=== PATIENT | female | born 1950 | race Caucasian/White ===

== ENCOUNTER 2017-05-30 19:55 | Emergency (ER) | payer OTHER | END 2017-05-30 21:04 | disposition home or self-care (01) | LOC: D.ER 19:55 | DX: S42.291A Other displaced fracture of upper end of right humerus, initial encounter for closed fracture (principal); W19.XXXA Unspecified fall, initial encounter; Y93.89 Activity, other specified; Y92.89 Other specified places as the place of occurrence of the external cause; E11.9 Type 2 diabetes mellitus without complications ==

== ENCOUNTER → 2019-03-23 12:48 | Outpatient (CLI) | payer MEDICARE, BC ==
[~2019-03-23 12:48] MED LIST: ALBUTEROL SULF8.5 GM INH; GLIPIZIDE10 MG PO; GLUCOPHAGE500 MG PO; LASIX20 MG PO; LISINOPRIL10 MG PO; TENORMIN25 MG PO
[2019-03-25 09:38] VITALS: BMI 32.1
== END | disposition home or self-care (01) ==
LOC: D.LAB 12:48
PROVIDERS: ATTEND Nurse Practitioner
DX: R09.02 Hypoxemia (principal); R60.0 Localized edema

== ENCOUNTER 2019-03-24 18:11 | Inpatient (IN) | payer MEDICARE, BC ==
[~2019-03-24] VITALS: Ht 154.9 cm; Wt 80.9 kg
--- NOTE | ~2019-03-24 | CN ---
PATIENT NAME:AISHA NEIL MEDICAL RECORD: [id number] : 52 LOCATION:D. D.2120 ADMIT DATE: 03/24/19 ACCOUNT: [id number] CONSULTING PHYSICIAN: DEB VU MD REFERRING PHYSICIAN: MARTINEZ GRIMALDO DO DATE OF CONSULTATION: 03/25/2019 CONSULT REQUESTING PHYSICIAN: Dr. Martinez Grimaldo REASON FOR CONSULTATION: Bilateral pleural effusion and dyspnea. HISTORY OF PRESENT ILLNESS: Ms. Neil is a 69-year-old female, who is complaining of shortness of breath with mild exertion. She has orthopnea. She has a PND. She has worsening swelling of the lower extremity. The patient came into the ER. Chest x-ray showed bilateral pleural effusion and the proBNP was 7600. Her pO2 was 57. Now, the patient is feeling lot better and she is off of the oxygen. REVIEW OF THE SYSTEM: As in history of present illness. PAST MEDICAL HISTORY: 1. Type 2 diabetes mellitus with neuropathy. 2. Dyspnea. 3. Hypertension. 4. Arthritis. PAST SURGICAL HISTORY: She has a hysterectomy. ALLERGIES: SHE IS ALLERGIC TO CODEINE. MEDICATIONS: She is on Bumex drip. Her all other medications are reviewed. PERSONAL AND SOCIAL HISTORY: The patient is an ex-smoker. She is a nondrinker. FAMILY HISTORY: Noncontributory. PHYSICAL EXAMINATION: GENERAL: Now, the patient is lying comfortable, but she is not in acute distress. VITAL SIGNS: The blood pressure is 149/66, pulse is 82, respirations 19, temperature 98.2, and SpO2 is 95% on room air. HEENT: Conjunctivae are pink. Sclerae are not icteric. NECK: Supple, no JVD. There are bilateral crackles with decreased breath sounds. HEART: Rhythm regular, normal sound. There are grade II/ systolic murmur. ABDOMEN: Soft, bowel sounds present. No hepatosplenomegaly. RECTAL: Deferred. EXTREMITIES: No cyanosis, no clubbing. There is 3+ pedal edema. CENTRAL NERVOUS SYSTEM: The patient is awake and alert. There is no obvious cranial nerve abnormality. The gait was not tested. CHEST RADIOGRAPH: There are bilateral pleural effusions with atelectasis. LABORATORY DATA: CBC: WBC 7.9, hemoglobin 11.2, hematocrit 33.4, the platelet count is 268. Chemistry: Sodium 137, potassium is 4.3, BUN is 33, creatinine CONSULT REPORT [id number] AISHA NEIL 0.6. The proBNP is 7600. Albumin is 2.7. ABG on admission: The pH was 7.41, pCO2 was 35.7, the pO2 was 57, bicarbonate was 22.7. IMPRESSION: 1. Acute hypoxic respiratory failure, improved. 2. Dyspnea, which is multifactorial. 3. Bilateral pleural effusion. 4. Congestive heart failure, most likely chronic systolic dysfunction. 5. Atelectasis of the lower lobe secondary to pleural effusion. 6. Ex-smoker, suspect chronic obstructive pulmonary disease. RECOMMENDATIONS: 1. Continue Bumex. 2. Continue supplemental oxygen to keep the SpO2 above 92% if required. 3. Follow up labs and chest radiograph. 4. Incentive spirometry. 5. The patient will need PFTs and workup for COPD as outpatient. Dr. Grimaldo, thank you for involving me in the care of Ms. Neil. TRANSINT:[id number] Voice Confirmation ID: [id number] DOCUMENT ID: [id number] DEB VU MD CC: [id number] DICTATION DATE: 03/25/19 1543 GLAUCOMA SPECIALIST: 03/26/19 1306 ADM IN [facility] [address] [place] [address]
[2019-03-24] MEDS ORDERED: GLIPIZIDE10 MG PO (18:23)
[2019-03-24] MEDS ORDERED: GLUCOPHAGE500 MG PO (18:23)
[2019-03-24] MEDS ORDERED: TENORMIN25 MG PO (18:24)
[2019-03-24] MEDS ORDERED: LISINOPRIL10 MG PO (18:24)
[2019-03-24] MEDS ORDERED: LASIX20 MG PO (18:25)
[2019-03-24 19:56] LABS: BASOPHILS 0.2 % (0-2); EOSINOPHILS 1.4 % (0-7); HEMATOCRIT 37.3 % (36.0-48.0); HEMOGLOBIN 12.7 g/dL (12-16); IMMATURE GRANULOCYTES 0.1 % (0-5); LYMPHOCYTES 18.5 % (15-50); MCH 28.7 pg (26.0-34.0); MCV 84.2 fL (80.0-100.0); MEAN PLATELET VOLUME 9.3 fL (7.4-10.4); MONOCYTES 8.4 % (2-11); NEUTROPHILS 71.4 % (40-80); PLATELET COUNT 302 10x3/uL (130-400); RBC 4.43 10x6/uL (4.00-5.40); RDW 13.5 % (11.5-14.5); WBC 9.6 10x3/uL (4.8-10.8)
[2019-03-24] MEDS ORDERED: ALBUTEROL SULF8.5 GM INH (20:16)
[2019-03-24 20:17] LABS: ALBUMIN 2.7 g/dL (3.4-5.0); ALKALINE PHOSPHATASE 175 U/L (46-116); ALT (SGPT) 36 U/L (10-68); BILIRUBIN - TOTAL 0.55 mg/dL (0.2-1.3); CALC OSMOLALITY 279 mosm/kg (275-300); CALCIUM 8.8 mg/dL (8.5-10.1); CARBON DIOXIDE 28.8 mmol/L (21.0-32.0); CHLORIDE - SERUM 102 mmol/L (98-107); CREATININE - SERUM 0.9 mg/dL (0.6-1.3); GLUCOSE 77 mg/dL (74-106); POTASSIUM - SERUM 4.4 mmol/L (3.5-5.1); PROTEIN - SERUM 7.2 g/dL (6.4-8.2); SODIUM 137 mmol/L (136-145); UREA NITROGEN 31 mg/dL (7-18); eGFR NON AFRICAN AMERICAN 66 mL/min (90-120)
[2019-03-24 20:28] LABS: CKMB 1.4 U/L (0.0-3.6); CREATINE KINASE 57 UL (21-215); PRO BNP 7600 pg/mL (0-125); TROPONIN-I < 0.017 ng/mL (0.000-0.060)
--- NOTE | 2019-03-24 22:01 | NUR ---
REPORT RECIEVED FROM ER. PT COMING ON A BUMEX DRIP. ALERT AND ORIENTED.
--- NOTE | 2019-03-24 22:15 | NUR ---
ADMIT TO ROOM 2120 FROM ER. ACCOMPANIED BY SISTER. IV BUMEX DRIP AT 3.5ML/HR INFUSING TO RIGHT A/C. NONLABORED RESPIRATIONS ON ROOM AIR. SET ROOM UP WITH BSC AND WALKER TO BE USED WITH GETTING UP AND DOWN TO VOID. INSTRUCTED ON USE OF CALL LIGHT TO CALL FOR ASSISTANCE. PROVIDED SANDWICH TRAY.
[2019-03-25] VITALS (7 sets, daily range): BP systolic 124–149; BP diastolic 59–75; Ht 154.9 cm; Wt 80.9 kg
[2019-03-25 04:25] LABS: BASOPHILS 0.3 % (0-2); EOSINOPHILS 1.4 % (0-7); HEMATOCRIT 33.4 % (36.0-48.0); HEMOGLOBIN 11.2 g/dL (12-16); IMMATURE GRANULOCYTES 0.3 % (0-5); LYMPHOCYTES 16.6 % (15-50); MCH 28.4 pg (26.0-34.0); MCHC 33.5 g/dL (31.0-37.0); MCV 84.6 fL (80.0-100.0); MEAN PLATELET VOLUME 9.7 fL (7.4-10.4); NEUTROPHILS 72.4 % (40-80); PLATELET COUNT 268 10x3/uL (130-400); RBC 3.95 10x6/uL (4.00-5.40); RDW 13.4 % (11.5-14.5); WBC 7.9 10x3/uL (4.8-10.8)
--- NOTE | 2019-03-25 04:34 | NUR ---
PT RESTING IN BED WITH NO DISTRESS. RESPS EVEN/NONLABORED. BUMEX DRIP INFUSING. CALL LIGHT IN REACH. MONITOR AND CPOC.
[2019-03-25 04:47] LABS: CALC OSMOLALITY 281 mosm/kg (275-300); CALCIUM 9.1 mg/dL (8.5-10.1); CARBON DIOXIDE 26.3 mmol/L (21.0-32.0); CHLORIDE - SERUM 103 mmol/L (98-107); GLUCOSE 109 mg/dL (74-106); MAGNESIUM - SERUM 1.7 mg/dL (1.8-2.4); PHOSPHOROUS 4.8 mg/dL (2.5-4.9); POTASSIUM - SERUM 4.3 mmol/L (3.5-5.1); PRO BNP 6141 pg/mL (0-125); SODIUM 137 mmol/L (136-145); UREA NITROGEN 33 mg/dL (7-18)
[2019-03-25 04:48] LABS: CREATININE - SERUM 0.6 mg/dL (0.6-1.3); eGFR NON AFRICAN AMERICAN > 90 mL/min (90-120)
--- NOTE | 2019-03-25 07:10 | NUR ---
AM ROUNDS- PT IN BED, RESTING COMFORTABLY IN BED, EASILY AROUSES TO VOICE. PT A/O X4, RESP EVEN AND NONLABORED ON RA. RT AC INFUSING BUMEX AT 3.5CC/HR. MONITOR SHOWING SR WITH RATE OF 92. GENERALIZED/PITTING EDEMA NOTED TO BILAT LEGS. PT DENIES ANY NEEDS AT THIS TIME. CALL LIGHT IN REACH, NAD NOTED, WILL CONTINUE PLAN OF CARE.
--- NOTE | 2019-03-25 08:32 | NUR ---
AM MEDS GIVEN AT THIS TIME. PT IN BED, EATING BREAKFAST, DENIES ANY NEEDS AT THIS TIME. CALL LIGHT IN REACH, NAD NOTED, WILL CONTINUE TO MONITOR.
--- NOTE | 2019-03-25 11:07 | NUR ---
BLOOD SUGAR OF 196, 2UNITS OF HUMALOG GIVEN PER S/S. PT DENIES ANY NEEDS AT THIS TIME. CALL LIGHT IN REACH, NAD NOTED, WILL CONTINUE TO MONITOR.
--- NOTE | 2019-03-25 12:17 | NUR ---
PROVIDED TEACHING TO PT ABOUT NEEDING A URINE SAMPLE. LEFT COLLECTION CONTAINER AT BEDSIDE, PT WILL NOTIFY THIS NURSE WHEN SAMPLE IS READY. PT EATING LUNCH DENIES ANY NEEDS AT THIS TIME. CALL LIGHT IN REACH, NAD NOTED,WILL CONTINUE TO MONITOR.
--- NOTE | 2019-03-25 16:17 | NUR ---
PT IS AGITATED AND REFUSING TO HAVE VITAL SIGNS TAKEN, TRIED TO GIVE PT 0.5MG OF ATIVAN PO, PT REFUSED TO TAKE, IT, STATED THAT HE WOULD TAKE ONE LATER. ZIPPED BED BACK UP, CALL LIGHT IN REACH, NAD NOTED, WILL CONTINUE TO MONITOR.
--- NOTE | 2019-03-25 19:47 | NUR ---
INITIAL ROUNDS AND ASSESSMENT COMPLETED. PT RESTING. NO DISTRESS. MONITOR AND CPOC. CALL LIGHT IN REACH.
--- NOTE | 2019-03-25 21:13 | NUR ---
IV TO RIGHT A/C IS BECOMING PAINFUL TO TOUCH. REMOVED OLD IV AND RESITED NEW 20G TO RFA X 1 ATTEMPT. IV BUMEX @ 3.5ML/HR RESUMMED. PT RESTING. NO DISTRESS. MONITOR AND CPOC.
--- NOTE | 2019-03-25 22:31 | NUR ---
MEDICATED WITH ULTRAM FOR GENERALIZED PAIN/DISCOMFORT. PT HAS NYSTATIN AT BEDSIDE AND IS USING IT HERSELF.
--- NOTE | 2019-03-26 03:50 | NUR ---
RESTING WITH NO DISTRESS. BUMEX DRIP INFUSING. CALL LIGHT IN REACH. MONITOR AND CPOC.
[2019-03-26 05:38] VITALS: BP 109/61
[2019-03-26 06:41] LABS: BASOPHILS 0.3 % (0-2); EOSINOPHILS 2.6 % (0-7); HEMATOCRIT 33.3 % (36.0-48.0); HEMOGLOBIN 11.1 g/dL (12-16); IMMATURE GRANULOCYTES 0.3 % (0-5); LYMPHOCYTES 22.5 % (15-50); MCH 28.2 pg (26.0-34.0); MCHC 33.3 g/dL (31.0-37.0); MCV 84.5 fL (80.0-100.0); MEAN PLATELET VOLUME 9.4 fL (7.4-10.4); MONOCYTES 8.1 % (2-11); NEUTROPHILS 66.2 % (40-80); PLATELET COUNT 222 10x3/uL (130-400); RBC 3.94 10x6/uL (4.00-5.40); RDW 13.5 % (11.5-14.5); WBC 6.2 10x3/uL (4.8-10.8)
[2019-03-26 07:19] LABS: CALC OSMOLALITY 287 mosm/kg (275-300); CALCIUM 8.4 mg/dL (8.5-10.1); CARBON DIOXIDE 27.4 mmol/L (21.0-32.0); CHLORIDE - SERUM 102 mmol/L (98-107); CREATININE - SERUM 0.6 mg/dL (0.6-1.3); PRO BNP 8084 pg/mL (0-125); SODIUM 138 mmol/L (136-145); UREA NITROGEN 34 mg/dL (7-18); eGFR NON AFRICAN AMERICAN > 90 mL/min (90-120)
[2019-03-26 07:21] LABS: GLUCOSE 164 mg/dL (74-106); MAGNESIUM - SERUM 1.1 mg/dL (1.8-2.4)
[2019-03-26 08:31] VITALS: BP 122/60
--- NOTE | 2019-03-26 11:32 | NUR ---
TELEMETRY SR. IV PATENT. CALL LIGHT IN REACH. WILL CONT. PLAN OF CARE.
[2019-03-26 12:06] VITALS: BP 151/53
[2019-03-26 15:04] VITALS: BP 130/52
--- NOTE | 2019-03-26 19:41 | NUR ---
INITIAL ROUNDS AND ASSESSMENT COMPLETED. PT RESTING IN BED. NO DISTRESS. MONITOR AND CPOC. CALL LIGHT IN REACH.
[2019-03-26 20:00] VITALS: BP 192/63
--- NOTE | 2019-03-26 21:32 | NUR ---
BEDTIME MEDS GIVEN. FSBS 270, 6 UNITS OF SLIDING SCALE ADMINISTERED. PT REQUESTS PAIN PILL FOR BACK PAIN. ULTRAM PROVIDED. CALL LIGHT IN REACH. LIGHTS DIMMED. PT NOW TRYING TO REST.
[2019-03-27] VITALS: BP 118/48
[2019-03-27 04:00] VITALS: BP 110/59
--- NOTE | 2019-03-27 04:50 | NUR ---
AM MED GIVEN. PT RESTING WITH NO DISTRESS. MONITOR AND CPOC.
[2019-03-27 05:02] LABS: BASOPHILS 0.3 % (0-2); EOSINOPHILS 1.9 % (0-7); HEMATOCRIT 34.8 % (36.0-48.0); HEMOGLOBIN 11.4 g/dL (12-16); IMMATURE GRANULOCYTES 0.1 % (0-5); LYMPHOCYTES 18.5 % (15-50); MCH 28.2 pg (26.0-34.0); MCHC 32.8 g/dL (31.0-37.0); MCV 86.1 fL (80.0-100.0); MEAN PLATELET VOLUME 9.7 fL (7.4-10.4); MONOCYTES 9.8 % (2-11); NEUTROPHILS 69.4 % (40-80); PLATELET COUNT 241 10x3/uL (130-400); RBC 4.04 10x6/uL (4.00-5.40); RDW 13.3 % (11.5-14.5); WBC 7.4 10x3/uL (4.8-10.8)
[2019-03-27 05:20] LABS: CALC OSMOLALITY 288 mosm/kg (275-300); CALCIUM 8.2 mg/dL (8.5-10.1); CARBON DIOXIDE 30.5 mmol/L (21.0-32.0); CHLORIDE - SERUM 101 mmol/L (98-107); GLUCOSE 142 mg/dL (74-106); PHOSPHOROUS 5.2 mg/dL (2.5-4.9); POTASSIUM - SERUM 4.1 mmol/L (3.5-5.1); SODIUM 139 mmol/L (136-145); UREA NITROGEN 38 mg/dL (7-18); eGFR NON AFRICAN AMERICAN 75 mL/min (90-120)
[2019-03-27 05:25] LABS: CREATININE - SERUM 0.8 mg/dL (0.6-1.3)
--- NOTE | 2019-03-27 07:15 | NUR ---
ASSESSMENT DONE. DENIES NEEDS.
[2019-03-27 09:04] VITALS: BP 156/70
--- NOTE | 2019-03-27 15:34 | NUR ---
I have reviewed this patient and I concur with the Shift Assessment completed by the Licensed Practical Nurse today this shift.
--- NOTE | 2019-03-27 16:40 | NUR ---
WITHOUT CHANGES OR DISTRESS NOTED AT THIS TIME. DENIES NEEDS
[2019-03-27 17:08] VITALS: BP 121/94
[2019-03-27 18:38] VITALS: BP 127/86
[2019-03-27 20:00] VITALS: BP 138/74
--- NOTE | 2019-03-27 21:36 | NUR ---
HS MEDS GIVEN WITH FRESH ICE WATER. PT DENIES PAIN OR NEEDS, BED LOW, CL IN REACH.
[2019-03-28] VITALS: BP 117/51
[2019-03-28 04:00] VITALS: BP 107/54
[2019-03-28] MEDS ORDERED: HYDROCODON-ACE1 EAC2 PO (04:04)
[2019-03-28] MEDS ORDERED: FUROSEMIDE20 MG PO (04:05)
--- NOTE | 2019-03-28 04:18 | NUR ---
I have reviewed this patient and I concur with the Shift Assessment completed by the Licensed Practical Nurse today this shift.
[2019-03-28 06:08] LABS: BASOPHILS 0.3 % (0-2); EOSINOPHILS 2.6 % (0-7); HEMATOCRIT 34.7 % (36.0-48.0); HEMOGLOBIN 11.4 g/dL (12-16); IMMATURE GRANULOCYTES 0.3 % (0-5); LYMPHOCYTES 20.2 % (15-50); MCH 28.4 pg (26.0-34.0); MCHC 32.9 g/dL (31.0-37.0); MCV 86.5 fL (80.0-100.0); MEAN PLATELET VOLUME 9.6 fL (7.4-10.4); MONOCYTES 10.3 % (2-11); NEUTROPHILS 66.3 % (40-80); PLATELET COUNT 219 10x3/uL (130-400); RBC 4.01 10x6/uL (4.00-5.40); RDW 13.2 % (11.5-14.5); WBC 6.5 10x3/uL (4.8-10.8)
[2019-03-28 06:39] LABS: CALC OSMOLALITY 291 mosm/kg (275-300); CALCIUM 8.1 mg/dL (8.5-10.1); CARBON DIOXIDE 34.6 mmol/L (21.0-32.0); CHLORIDE - SERUM 101 mmol/L (98-107); CREATININE - SERUM 0.8 mg/dL (0.6-1.3); GLUCOSE 173 mg/dL (74-106); MAGNESIUM - SERUM 1.2 mg/dL (1.8-2.4); PHOSPHOROUS 4.4 mg/dL (2.5-4.9); POTASSIUM - SERUM 3.9 mmol/L (3.5-5.1); SODIUM 140 mmol/L (136-145); UREA NITROGEN 37 mg/dL (7-18); eGFR NON AFRICAN AMERICAN 75 mL/min (90-120)
--- NOTE | 2019-03-28 07:32 | NUR ---
ROUNDING DONE WITH NO NEEDS VOICED PER PATIENT. BSC IN ROOM. ON EP, K+ 3.9. RIGHT FA PIV SEEN WITH SALINE LOCK. ON HEART MONITOR SHWOING SR, HR 78. ON 2L PER NC.
[2019-03-28 08:19] VITALS: BP 127/59
[2019-03-28 12:28] VITALS: BP 152/68
[2019-03-28] MEDS ORDERED: COREG 3.1253.125 MG PO (13:17)
[2019-03-28] MEDS ORDERED: BUMEX2 MG PO (13:18)
[2019-03-28] MEDS ORDERED: PROTONIX40 MG PO (13:18)
--- NOTE | 2019-03-28 14:20 | NUR ---
PER HARJINDER CORDERO APN WE DO NOT HAVE TO GET THE URINE SAMPLE.
--- NOTE | 2019-03-28 15:42 | NUR ---
VERBAL AND WRITTEN DISCHARGE INSTRUCTIONS GIVEN TO PATIENT. SALINE LOCK REMOVED WITH CATH TIP INTACT. DISCHARGED HOME VIA WHEELCHAIR.
--- NOTE | 2019-03-28 16:46 | MORECARE ---
CASE MANAGEMENT DISCHARGE SUMMARY PATIENT: AISHA NEIL UNIT: [id number] ADM DATE: 03/24/19 AGE: 69 : 51 SEX: F ROOM/BED: D.8030 AUTHOR: BHUMI RAMÍREZ PHYSICIAN: REFERRING PHYSICIAN: JESUS GRIMALDO DO DATE OF SERVICE: 03/28/19 Discharge Plan Patient Name: AISHA NEIL Facility: [facility]:[place] : 1950 Planned Disposition: Home Anticipated Discharge Date: 03/28/19 Discharge Date: 03/28/2019 Expected LOS: 4 Initial Reviewer: [email or web address] Initial Review Date: 03/28/2019 Generated: 03/28/19 5:46 pm Patient Name: AISHA NEIL Page [id number] at 1646 All edits/amendments must be made on the electronic document DICTATION DATE: 03/28/191645 JACKET CHANGER: SHU 03/28/191645 RPT#: [id number] DC DATE:03/28/19 STATUS: DIS IN [facility] [address] [place] [address] END OF REPORT
--- NOTE | 2019-03-28 16:53 | MORECARE ---
CASE MANAGEMENT DISCHARGE SUMMARY PATIENT: AISHA NEIL UNIT: [id number] ADM DATE: 03/24/19 AGE: 69 : 51 SEX: F ROOM/BED: D.4566 AUTHOR: DESIREEDOC PHYSICIAN: REFERRING PHYSICIAN: JESUS GRIMALDO DO DATE OF SERVICE: 03/28/19 Discharge Plan Patient Name: AISHA NEIL Facility: [facility]:[place] : 1950 Planned Disposition: Home Anticipated Discharge Date: 03/28/19 Discharge Date: 03/28/2019 Expected LOS: 4 Initial Reviewer: [email or web address] Initial Review Date: 03/28/2019 Generated: 03/28/19 5:53 pm Comments DCP- Discharge Planning Updated by [email or web address]: Coy Parry on 03/28/19 3:[address] Patient Name: AISHA NEIL Admission Status: ER Accout number: [id number] Admission Date: 03-24-2019 : 1950 Admission Diagnosis: Attending: JESUS GRIMALDO Current LOS: 4 Anticipated DC Date: 03-28-2019 Planned Disposition: Home Primary Insurance: MEDICARE A & B Discharge Planning Comments: CM MET WITH PT IN ROOM TO DISCUSS DISCHARGE PLANNING AND NEEDS. AISHA NEIL provided verbal consent to discuss current and ongoing needs with/in the presence of: RAMILA GAUTHIER, SISTER. PT REPORTS LIVING AT HOME INDEPENDENTLY WITH HER SISTER. PT HAS ROLLATOR AND STANDARD WALKER WITH NO MEDICAL EQUIPMENT PROVIDER PREFERENCE. PT HAS NO OUTSIDE SERVICES ASSISTING IN THE HOME. CM DISCUSSED AVAILABILITY OF HOME HEALTH, REHAB SERVICES AND MEDICAL EQUIPMENT. PT DENIES DISCHARGE NEEDS, REPORTS HER SISTER WILL PICK HER UP FOR DISCHARGE HOME. IMPORTANT MESSAGE FROM MEDICARE PROVIDED AND EXPLAINED. OPTOMETRIST ASSISTANT NURSE NOTIFIED. Director Of Agronomy: Coy Parry DCPIA - Discharge Planning Initial Assessment Updated by [email or web address]: Coy Parry on 03/28/19 4:46 pm * Is the patient Alert and Oriented? Yes * How many steps to enter\exit or inside your home? 0-O / 2-I * PCP LEGAL ACTIVITY ADJUDICATOR RA[facility], [employer] [facility] [email or web address] [facility] * Pharmacy [facility], [facility]. * Preadmission Environment Home with Family * ADLs Independent * Equipment Rolling Walker Walker * Other Equipment ROLLATOR WALKER NO MEDICAL EQUIPMENT PROVIDER PREFERENCE * List name and contact numbers for known caregivers / representatives who currently or will assist patient after discharge: RAMILA GAUTHIER, SISTER,. [phone] * Verbal permission to speak to the caregivers and representatives has been obtained from the patient. Yes * Community resources currently utilized None * Please name any agencies selected above. NONE * Additional services required to return to the preadmission environment? No * Can the patient safely return to the preadmission environment? Yes * Has this patient been hospitalized within the prior 30 days at any hospital? No Coverage Notice Reviewer: [id number] Cristian Parry Notice Issued Date-Time: 03/28/2019 15:10 Notice Type: IM Discharge Notice Notice Delivered To: Patient Relationship to Patient: High Density Talc Coater Operator Name: Delivery Method: HAND - Hand Delivered Dilcia Days: Prior Verbal Notification: Recipient Understood Notice: Yes Recipient Signature: Yes Med Rec Note Co-signed by Attending: Coverage Notice Comment: Last DP export: 03/28/19 3:46 p Patient Name: AISHA NEIL Page 59421 at 1653 All edits/amendments must be made on the electronic document DICTATION DATE: 03/28/191651 OPERATIONS DISPATCHER: SHU 03/28/191651 RPT#: [id number] DC DATE:03/28/19 STATUS: DIS IN [facility] [address] [place] [address] END OF REPORT
--- NOTE | 2019-03-28 17:00 | MORECARE ---
CASE MANAGEMENT DISCHARGE SUMMARY PATIENT: AISHA NEIL UNIT: [id number] ADM DATE: 03/24/19 AGE: 69 : 51 SEX: F ROOM/BED: D.4894 AUTHOR: BHUMI RAMÍREZ PHYSICIAN: REFERRING PHYSICIAN: JESUS GRIMALDO DO DATE OF SERVICE: 03/28/19 Discharge Plan Patient Name: AISHA NEIL Facility: [facility]:[place] : 1950 Planned Disposition: Home Anticipated Discharge Date: 03/28/19 Discharge Date: 03/28/2019 Expected LOS: 4 Initial Reviewer: [email or web address] Initial Review Date: 03/28/2019 Generated: 03/28/19 6:00 pm Comments DCP- Discharge Planning Updated by [email or web address]: Coy Garner on 03/28/19 4:[address] Patient Name: AISHA NEIL Admission Status: ER Accout number: [id number] Admission Date: 03-24-2019 : 1950 Admission Diagnosis: Attending: JESUS GRIMALDO Current LOS: 4 Anticipated DC Date: 03-28-2019 Planned Disposition: Home Primary Insurance: MEDICARE A & B Discharge Planning Comments: CM MET WITH PT IN ROOM TO DISCUSS DISCHARGE PLANNING AND NEEDS. AISHA NEIL provided verbal consent to discuss current and ongoing needs with/in the presence of: RAMILA GAUTHIER, SISTER. PT REPORTS LIVING AT HOME INDEPENDENTLY WITH HER SISTER. PT HAS ROLLATOR AND STANDARD WALKER WITH NO MEDICAL EQUIPMENT PROVIDER PREFERENCE. PT HAS NO OUTSIDE SERVICES ASSISTING IN THE HOME. CM DISCUSSED AVAILABILITY OF HOME HEALTH, REHAB SERVICES AND MEDICAL EQUIPMENT. PT DENIES DISCHARGE NEEDS, REPORTS HER SISTER WILL PICK HER UP FOR DISCHARGE HOME. IMPORTANT MESSAGE FROM MEDICARE PROVIDED AND EXPLAINED. MANAGER OF ENVIRONMENTAL SERVICES NURSE NOTIFIED. Bakery Manager: Coy Garner Appended by Coy Garner on 03/28/2019 17:00 CDT: CORRECTION: PT'[facility]Y IS [facility]. COY GARNER, CASE MANAGEMENT DCPIA - Discharge Planning Initial Assessment Updated by [id number]: Coy Garner on 03/28/19 5:00 pm * Is the patient Alert and Oriented? Yes * How many steps to enter\exit or inside your home? 0-O / 2-I * PCP [facility], [facility] [place] * Pharmacy [facility] * Preadmission Environment Home with Family * ADLs Independent * Equipment Rolling Walker Walker * Other Equipment ROLLATOR WALKER NO MEDICAL EQUIPMENT PROVIDER PREFERENCE * List name and contact numbers for known caregivers / representatives who currently or will assist patient after discharge: RAMILA GAUTHIER, SISTER,. [phone] * Verbal permission to speak to the caregivers and representatives has been obtained from the patient. Yes * Community resources currently utilized None * Please name any agencies selected above. NONE * Additional services required to return to the preadmission environment? No * Can the patient safely return to the preadmission environment? Yes * Has this patient been hospitalized within the prior 30 days at any hospital? No Coverage Notice Reviewer: [email or web address] Cristian Garner Notice Issued Date-Time: 03/28/2019 15:10 Notice Type: IM Discharge Notice Notice Delivered To: Patient Relationship to Patient: Investigator Claims Name: Delivery Method: HAND - Hand Delivered Dilcia Days: Prior Verbal Notification: Recipient Understood Notice: Yes Recipient Signature: Yes Med Rec Note Co-signed by Attending: Coverage Notice Comment: Last DP export: 03/28/19 3:53 p Patient Name: AISHA NEIL Page 51188 at 1700 All edits/amendments must be made on the electronic document DICTATION DATE: 03/28/19 1700 PROFESSOR OF SPECIAL EDUCATION: SHU 03/28/19 1700 RPT#: [id number] DC DATE:03/28/19 STATUS: DIS IN [facility] [id number] [place] [address] END OF REPORT
--- NOTE | 2019-03-29 09:17 | MORECARE ---
CASE MANAGEMENT DISCHARGE SUMMARY PATIENT: AISHA NEIL UNIT: [id number] ADM DATE: 03/24/19 AGE: 69 : 51 SEX: F ROOM/BED: D.2259 AUTHOR: BHUMI RAMÍREZ PHYSICIAN: REFERRING PHYSICIAN: JESUS GRIMALDO DO DATE OF SERVICE: 03/29/19 Discharge Plan Patient Name: AISHA NEIL Facility: [facility]:[place] : 1950 Planned Disposition: Home Anticipated Discharge Date: 03/28/19 Discharge Date: 03/28/2019 Expected LOS: 4 Initial Reviewer: [email or web address] Initial Review Date: 03/28/2019 Generated: 03/29/19 10:16 am Comments DCP- Discharge Planning Updated by [email or web address]: Coy Garner on 03/28/19 4:[address] Patient Name: IASHA NEIL Admission Status: ER Accout number: [id number] Admission Date: 03-24-2019 : 1950 Admission Diagnosis: Attending: JESUS GRIMALDO Current LOS: 4 Anticipated DC Date: 03-28-2019 Planned Disposition: Home Primary Insurance: MEDICARE A & B Discharge Planning Comments: CM MET WITH PT IN ROOM TO DISCUSS DISCHARGE PLANNING AND NEEDS. AISHA NEIL provided verbal consent to discuss current and ongoing needs with/in the presence of: RAMILA GAUTHIER, SISTER. PT REPORTS LIVING AT HOME INDEPENDENTLY WITH HER SISTER. PT HAS ROLLATOR AND STANDARD WALKER WITH NO MEDICAL EQUIPMENT PROVIDER PREFERENCE. PT HAS NO OUTSIDE SERVICES ASSISTING IN THE HOME. CM DISCUSSED AVAILABILITY OF HOME HEALTH, REHAB SERVICES AND MEDICAL EQUIPMENT. PT DENIES DISCHARGE NEEDS, REPORTS HER SISTER WILL PICK HER UP FOR DISCHARGE HOME. IMPORTANT MESSAGE FROM MEDICARE PROVIDED AND EXPLAINED. FEEDER DRIVER NURSE NOTIFIED. Plate Finisher: Coy Garner Appended by Coy Garner on 03/28/2019 17:00 CDT: CORRECTION: PT'S [facility]Y IS [facility]. COY GARNER, CASE MANAGEMENT DCPIA - Discharge Planning Initial Assessment Updated by [email or web address]: Coy Garner on 03/28/19 5:00 pm * Is the patient Alert and Oriented? Yes * How many steps to enter\exit or inside your home? 0-O / 2-I * PCP [facility], [facility] [place] * Pharmacy [facility] * Preadmission Environment Home with Family * ADLs Independent * Equipment Rolling Walker Walker * Other Equipment ROLLATOR WALKER NO MEDICAL EQUIPMENT PROVIDER PREFERENCE * List name and contact numbers for known caregivers / representatives who currently or will assist patient after discharge: RAMILA GAUTHIER, SISTER,. [phone] * Verbal permission to speak to the caregivers and representatives has been obtained from the patient. Yes * Community resources currently utilized None * Please name any agencies selected above. NONE * Additional services required to return to the preadmission environment? No * Can the patient safely return to the preadmission environment? Yes * Has this patient been hospitalized within the prior 30 days at any hospital? No External Providers External Provider: [facility] Next Contact Date: 03/29/2019 Service Request Date: Service Type: Resolution: Reviewer: Comments: Coverage Notice Reviewer: [email or web address] - Coy Garner Notice Issued Date-Time: 03/28/2019 15:10 Notice Type: IM Discharge Notice Notice Delivered To: Patient Relationship to Patient: Senior Naval Parachutist Name: Delivery Method: HAND - Hand Delivered Dilcia Days: Prior Verbal Notification: Recipient Understood Notice: Yes Recipient Signature: Yes Med Rec Note Co-signed by Attending: Coverage Notice Comment: Last DP export: 03/28/19 4:00 p Patient Name: AISHA NEIL Page 67081 at 0917 All edits/amendments must be made on the electronic document DICTATION DATE: 03/29/19915 MATERIAL HANDLER 2ND SHIFT: SHU 03/29/19915 RPT#: [id number] DC DATE:03/28/19 STATUS: DIS IN [facility] [address] [facility] [place] [address] END OF REPORT
--- NOTE | 2019-03-29 09:25 | MORECARE ---
CASE MANAGEMENT DISCHARGE SUMMARY PATIENT: AISHA NEIL UNIT: [id number] ADM DATE: 03/24/19 AGE: 69 : 51 SEX: F ROOM/BED: D.6229 AUTHOR: BHUMI RAMÍREZ PHYSICIAN: REFERRING PHYSICIAN: JESUS GRIMALDO DO DATE OF SERVICE: 03/29/19 Discharge Plan Patient Name: AISHA NEIL Facility: [facility]:[place] : 1950 Planned Disposition: Home Anticipated Discharge Date: 03/28/19 Discharge Date: 03/28/2019 Expected LOS: 4 Initial Reviewer: [email or web address] Initial Review Date: 03/28/2019 Generated: 03/29/19 10:25 am Comments DCP- Discharge Planning Updated by [email or web address]: Coy Garner on 03/29/19 8:[address] Patient Name: AISHA NEIL Encounter No: [id number] : 1950 Primary Insurance: MEDICARE A & B Anticipated DC Date: 03-28-2019 Planned Disposition: Home WITH HOME HEALTH External Planned Provider: [facility] DCP follow-up note: CM RECEIVED CALL FROM [facility] WHO INFORMED CM THAT PT WAS CURRENT WITH THEM FOR HOME HEALTH AND THAT THEY NEED DISCHARGE INFORMATION TO RESUME HOME HEALTH. CM CALLED PT AT HOME, , PT REPORTS SHE IS CURRENT WITH [facility], WOULD LIKE RESUMED AND WOULD LIKE TO SEND INFORMATION TO [facility]. CM FAXED DISCHARGE AND HOSPITAL STAY INFORMATION TO [facility] AT [phone]. [facility] TO RESUME HOME HEALTH SERVICES. AURA Mckeon DCP- Discharge Planning Updated by [email or web address]: Coy Garner on 03/28/19 4:[address] Patient Name: AISHA NEIL Admission Status: ER Accout number: [id number] Admission Date: 03-24-2019 : 1950 Admission Diagnosis: Attending: JESUS GRIMALDO Current LOS: 4 Anticipated DC Date: 03-28-2019 Planned Disposition: Home Primary Insurance: MEDICARE A & B Discharge Planning Comments: CM MET WITH PT IN ROOM TO DISCUSS DISCHARGE PLANNING AND NEEDS. AISHA NEIL provided verbal consent to discuss current and ongoing needs with/in the presence of: RAMILA GAUTHIER, . PT REPORTS LIVING AT HOME INDEPENDENTLY WITH HER SISTER. PT HAS ROLLATOR AND STANDARD WALKER WITH NO MEDICAL EQUIPMENT PROVIDER PREFERENCE. PT HAS NO OUTSIDE SERVICES ASSISTING IN THE HOME. CM DISCUSSED AVAILABILITY OF HOME HEALTH, REHAB SERVICES AND MEDICAL EQUIPMENT. PT DENIES DISCHARGE NEEDS, REPORTS HER SISTER WILL PICK HER UP FOR DISCHARGE HOME. IMPORTANT MESSAGE FROM MEDICARE PROVIDED AND EXPLAINED. INSTRUCTIONAL ASSISTANT NURSE NOTIFIED. Manager Bilingual: Coy Garner Appended by Coy Garner on 03/28/2019 17:00 CDT: CORRECTION: [facility]. COY GARNER, CASE MANAGEMENT DCPIA - Discharge Planning Initial Assessment Updated by [email or web address]: Coy Garner on 03/28/19 5:00 pm * Is the patient Alert and Oriented? Yes * How many steps to enter\exit or inside your home? 0-O / 2-I * PCP [facility], [facility] * Pharmacy [facility] * Preadmission Environment Home with Family * ADLs Independent * Equipment Rolling Walker Walker * Other Equipment ROLLATOR WALKER NO MEDICAL EQUIPMENT PROVIDER PREFERENCE * List name and contact numbers for known caregivers / representatives who currently or will assist patient after discharge: RAMILA GAUTHIER, ,. [phone] * Verbal permission to speak to the caregivers and representatives has been obtained from the patient. Yes * Community resources currently utilized None * Please name any agencies selected above. NONE * Additional services required to return to the preadmission environment? No * Can the patient safely return to the preadmission environment? Yes * Has this patient been hospitalized within the prior 30 days at any hospital? No Coverage Notice Reviewer: [email or web address] - Coy Garner Notice Issued Date-Time: 03/28/2019 15:10 Notice Type: IM Discharge Notice Notice Delivered To: Patient Relationship to Patient: Ict Account Manager Name: Delivery Method: HAND - Hand Delivered Dilcia Days: Prior Verbal Notification: Recipient Understood Notice: Yes Recipient Signature: Yes Med Rec Note Co-signed by Attending: Coverage Notice Comment: Last DP export: 03/29/19 8:17 a Patient Name: AISHA NEIL Page 08157 at 0925 All edits/amendments must be made on the electronic document DICTATION DATE: 03/29/19924 CHEMICAL DEPENDENCY NURSE: SHU 03/29/19924 RPT#: [id number] DC DATE:03/28/19 STATUS: DIS IN [facility] [address] [place] [address] END OF REPORT
--- NOTE | 2019-03-29 11:19 | EC ---
PATIENT:AISHA NEIL DATE OF SERVICE: 03/24/19 SEX: F MEDICAL RECORD: [id number] DATE OF : [birth year] LOCATION:D.M2 D.212 AGE OF PATIENT: 69 ADMISSION DATE: 03/24/19 REFERRING PHYSICIAN: INTERPRETING PHYSICIAN: ALYSHA MELENDEZ MD ECHOCARDIOGRAM REPORT ECHO CHARGES 4 ECHO COMPLETE Date: 03/25/19 CLINICAL DIAGNOSIS: PITTING EDEMA ECHOCARDIOGRAPHIC MEASUREMENTS (adult normal given) AC root (d.<3.7cm) 2.6 cm LV Septum d (<1.2 cm> 0.9 cm Valve Excursion 1.6 cm LV Septum (systole) 1.1 cm Left Atria (s.<4.0cm> 2.8 cm LVPW d(<1.2cm) 1.4 cm RV (d.<2.3cm) 2.2 cm LVPW (sytole) 1.6 cm LV diastole(<5.6CM) 5.6 cm MV E-F(>70mm/sec) cm LV systole 4.2 cm LVOT Diameter 1.8 cm MV exc.(>10mm) cm Est.ejection fraction (50-75%) % DOPPLER: LVIT cm/sec A 124 cm/sec E 100 cm/sec LA cm/sec RVSP 32.8 mmHg LVOT 90 cm/sec AOP1/2T m/s Asc. Ao 143 cm/sec RVOT 67 cm/sec RA cm/sec PA 78 cm/sec AV Gradient Peak 8.2 mmHg AV Mean 4.9 mmHg AV Area 1.5 cm MV Gradient Peak 8.7 mmHg MV Mean 4.1 mmHg MV Area cm COMMENTS: Sock Drier: [facility] Fish Roe Processor: 1 Dr. Melendez TAPE# PACS Pericardial Effusion Y DATE OF SERVICE: 03/25/2019 FINDINGS: 1. Left ventricular chamber size is mildly dilated. Left ventricular systolic function is moderately reduced. Overall ejection fraction 30%. There is global hypokinesis throughout all segments with no discrete wall motion abnormalities present. 2. Left atrium, right atrium and right ventricular chamber sizes are within normal limits. 3. Valvular structures have normal structure and motion. ECHOCARDIOGRAM REPORT [id number] AISHA NEIL 4. Doppler interrogation reveals mild mitral regurgitation, trace tricuspid regurgitation, no other valvular insufficiency or stenosis. 5. No evidence of pericardial effusion or left ventricular thrombus. TRANSINT:[id number] Voice Confirmation ID: [id number] DOCUMENT ID: [id number] ALYSHA MELENDEZ MD at 1119 CC: [id number] DICTATION DATE: 03/26/19 1026 FARMWORKER RICE: 03/26/19 1414 DIS IN 03/28/19 [facility] [address] [id number]
== END 2019-03-28 15:45 | disposition home health service (06) | DRG 291 ==
LOC: D.ER 18:11 → D.M2 21:02
PROVIDERS: Emergency Medicine; ADMIT Family Medicine; ATTEND Family Medicine
DX: I11.0 Hypertensive heart disease with heart failure (principal); J96.01 Acute respiratory failure with hypoxia; J98.11 Atelectasis; M48.54XA Collapsed vertebra, not elsewhere classified, thoracic region, initial encounter for fracture; N17.9 Acute kidney failure, unspecified; I50.23 Acute on chronic systolic (congestive) heart failure; E11.65 Type 2 diabetes mellitus with hyperglycemia; I08.1 Rheumatic disorders of both mitral and tricuspid valves; D64.9 Anemia, unspecified; E83.39 Other disorders of phosphorus metabolism

== ENCOUNTER 2019-05-24 09:00 | Outpatient (CLI) | payer MEDICARE, BC ==
[2019-03-25 09:38] VITALS: BMI 32.1
[~2019-05-24 09:00] MED LIST changes: +BUMEX2 MG PO; +COREG 3.1253.125 MG PO; +FUROSEMIDE20 MG PO; +HYDROCODON-ACE1 EAC2 PO; +PROTONIX40 MG PO
== END 2019-05-24 10:00 | disposition home or self-care (01) ==
LOC: D.MAMMO 09:00
PROVIDERS: ATTEND Nurse Practitioner
DX: Z12.31 Encounter for screening mammogram for malignant neoplasm of breast (principal)

== ENCOUNTER → 2019-06-21 12:05 | Outpatient (CLI) | payer MEDICARE, BC ==
[2019-03-25 09:38] VITALS: BMI 32.1
== END | disposition home or self-care (01) ==
LOC: D.LAB 12:05
PROVIDERS: ATTEND Nurse Practitioner
DX: R09.02 Hypoxemia (principal)